=== PATIENT | male | born 1950 | race African-American/Black ===

== ENCOUNTER → 2018-03-05 | Outpatient (CLI) | payer MEDICARE, OTHER ==
--- NOTE | 2018-03-05 16:44 | RAD ---
Examination: Bilateral Lower Extremity Venous Doppler Ultrasound History: pain Comparison: None Procedure: Sierra scale, color flow 2D and spectal waveform analysis images are obtained with and without compression in the area of the common femoral vein, superficial femoral vein - femoral vein junction, main femoral vein (superficial femoral vein) and popliteal vein. Veins of the proximal calf are also imaged. Findings: There is normal duplex flow, color flow and compressibility of all visualized vein segments. No evidence of deep venous thrombus is present. Impression: No evidence of DVT in the visualized bilateral lower extremity venous system. Electronically signed by: Steven Alaniz MD (03/05/2018 4:40 PM) [id number]
--- NOTE | 2018-03-05 16:53 | RAD ---
Examination: Ultrasound bilateral lower extremity arterial duplex HISTORY: History of peripheral vascular disease COMPARISON: None available TECHNIQUE: Grayscale, color Doppler 2-D, spectral waveform analysis of the bilateral lower extremity arterial system were performed FINDINGS: The following are the velocities in the right lower extremity: Common femoral artery 107 cm/s. Deep femoral artery 97 cm/s. Proximal SFA 120 cm/s. Mid SFA 108 cm/s. Distal SFA 124 cm/s. Popliteal artery 74 cm/s. Proximal RECOVERY ASSISTANT 64 cm/s. Distal RECOVERY ASSISTANT 84 cm/s. Peroneal artery 77 cm/s. Anterior tibialis artery 80 cm/s Dorsalis pedis artery 48 cm/s. The following are the velocities in the left lower extremity: Common femoral artery 116 cm/s. Deep femoral artery 80 cm/s Proximal SFA 108 cm/s. Mid SFA 97 cm/s. Distal SFA 66 cm/s. Popliteal artery 77 cm/s. Proximal RECOVERY ASSISTANT 85 cm/s. Distal RECOVERY ASSISTANT 91 cm/s. Peroneal artery 72 cm/s. Anterior tibialis artery 107 cm/s. Dorsalis pedis artery 23 cm/s. Triphasic waveforms identified throughout the bilateral lower extremity arterial system except the deep left femoral artery which demonstrates biphasic waveforms. IMPRESSION: No evidence of hemodynamically significant stenosis. Electronically signed by: Steven Alaniz MD (03/05/2018 4:49 PM) [id number]
== END | disposition home or self-care (01) ==
LOC: US 12:34
PROVIDERS: ATTEND Family Medicine
DX: I73.89 Other specified peripheral vascular diseases (principal); R60.0 Localized edema
CPT/HCPCS: 93925; 93970

== ENCOUNTER → 2021-03-29 | Day surgery (SDC) | payer MEDICARE, OTHER ==
[~2021-03-29] MED LIST: ATOR40TA59 PO; FURO40TA4 PO; GABA-586 PO; METF500T16 PO; spironolactone; trulicity; vitamin b; vitamin d
[2021-03-29 11:55] VITALS: BP 167/87
== END | disposition home or self-care (01) ==
LOC: SURG 11:46
PROVIDERS: ATTEND Anesthesiology
DX: M54.16 Radiculopathy, lumbar region (principal); I25.10 Atherosclerotic heart disease of native coronary artery without angina pectoris; Z79.899 Other long term (current) drug therapy; Z98.890 Other specified postprocedural states; Z79.82 Long term (current) use of aspirin; Z88.8 Allergy status to other drugs, medicaments and biological substances
CPT/HCPCS: 99214; G0463